=== PATIENT | male | born 1985 | race Caucasian/White ===

== ENCOUNTER 2017-07-19 11:06 | Emergency (ER) | payer BC ==
[~2017-07-19] VITALS: Ht 167.6 cm; Wt 74.5 kg
[2017-07-19 11:15] VITALS: Ht 167.6 cm; Wt 74.5 kg
[2017-07-19 13:51] VITALS: BP 130/64
== END 2017-07-19 13:51 | disposition home or self-care (01) ==
LOC: ED 11:06
DX: F19.939 Other psychoactive substance use, unspecified with withdrawal, unspecified (principal); F17.200 Nicotine dependence, unspecified, uncomplicated